=== PATIENT | male | born 1980 | race Caucasian/White ===

== ENCOUNTER 2020-07-20 18:37 | Emergency (ER) | payer SELFPAY ==
[2020-07-20 18:39] VITALS: BP 164/104; PULSE 95; RESP 26; TEMP 35.7; O2SAT 97; BMI 30.3
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
[2020-07-20 19:04] VITALS: RESP 18; O2SAT 97
[2020-07-20] MEDS: morphine 4 mg/mL SDV 1 mL IVP ×2 (19:04→20:54)
[2020-07-20] MEDS: ondansetron 2 mg/ML SDV 2 mL 4 MG IVP (19:05)
[2020-07-20 19:17] LABS: Basophils # 0.1 10^3/uL (0.0-0.1); Basophils % 0.4 %; Eosinophils # 0.5 10^3/uL (0.0-0.8); Hematocrit 47.3 % (42.0-52.0); Hemoglobin 15.6 g/dL (11.7-16.6); Lymphocytes # 2.8 10^3/uL (0.8-4.8); Lymphocytes % 25.2 %; Mean Corpuscular Hemoglobin 28.7 pg (28.0-34.0); Mean Corpuscular Volume 86.9 fL (80-94); Mean Platelet Volume 12.4 fL (7.4-10.4); Monocytes % 8.6 %; Neutrophils % 61.4 %; Nucleated Red Blood Cells % 0 %; Platelet Count 193 10^3/cmm (130-400); Red Blood Count 5.44 10^6/uL (4.1-5.3); Red Cell Distribution Width 13.3 % (12.1-15.1); White Blood Count 11.3 10^3/uL (4.0-10.0)
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
[2020-07-20 19:57] LABS: Alanine Aminotransferase 31 U/L (0-41); Albumin Level 4.8 g/dL (3.5-5.2); Alkaline Phosphatase 108 IU/L (40-130); Anion Gap 13.5 (5-19); Aspartate Amino Transferase 25 U/L (0-40); Blood Urea Nitrogen 17 mg/dL (6-20); Calcium 9.8 mg/dL (8.5-10.5); Carbon Dioxide 25 mmol/L (22-29); Chloride 101 mmol/L (98-107); Creatinine Clr Calc Pharmacy 102.7473; Globulin 2.6 g/dL (1.3-4.6); Glomerular Filtration Rate 66.7 mL/min (90-130); Glucose 86 mg/dL (65-115); Lipase 48 U/L (13-60); Osmolality Calculated 283 mOsm/kg (285-295); Potassium 3.5 mmol/L (3.5-5.1); Sodium 136 mmol/L (136-145); Total Bilirubin 0.3 mg/dL (0.15-1.2); Total Protein 7.4 g/dL (6.6-8.7)
[2020-07-20] MEDS: iohexol 300 mg/mL 100 mL Btl IV (20:05)
[2020-07-20 20:27] VITALS: BP 146/95; PULSE 70; RESP 18; O2SAT 95
[2020-07-20 20:46] LABS: Add Urine Microscopic? NO
[2020-07-20 20:54] VITALS: RESP 18; O2SAT 97
[2020-07-20 20:59] LABS: Bilirubin Urine Neg (Negative); Blood Urine Neg (Negative); Glucose Urine UA Norm (Normal); Ketones Urine Negative (Negative); Leukocyte Esterase Urine Negative (Negative); Nitrate Urine Negative (Negative); Protein Urine Neg (Negative); Specific Gravity, Urine 1.025 (1.005-1.030); Urine Appearance Clear (CLEAR); Urine Color Yellow (Yellow); Urobilinogen Urine Norm (Negative); pH Urine 5 (5-7)
[2020-07-20 22:10] VITALS: BP 148/96; PULSE 77; RESP 18; O2SAT 95
== END 2020-07-20 22:10 | disposition home or self-care (01) ==
PROVIDERS: Emergency Medicine; Emergency Provider Emergency Medicine; PCP Family Medicine
DX: S29.8XXA Other specified injuries of thorax, initial encounter (principal); E04.1 Nontoxic single thyroid nodule; V86.55XA Driver of 3- or 4- wheeled all-terrain vehicle (ATV) injured in nontraffic accident, initial encounter
CPT/HCPCS: 12345; 70450; 71045; 71260; 72125; 72128; 72131; 74177; 80053; 81003; 83690; 85025; 96374; 96375; 96376; 99282; 99283; J2270; J2405; Q9967

== ENCOUNTER 2020-11-06 07:31 | Emergency (ER) | payer SELFPAY ==
[2020-11-06 07:48] VITALS: BP 167/122; PULSE 94; RESP 16; TEMP 36.6; O2SAT 97; BMI 33.0
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
== END 2020-11-06 08:49 | disposition left against medical advice (07) ==
PROVIDERS: Emergency Provider Nurse Practitioner Family
DX: M79.641 Pain in right hand (principal); Z53.21 Procedure and treatment not carried out due to patient leaving prior to being seen by health care provider
CPT/HCPCS: 73130; 99282

== ENCOUNTER 2020-11-06 12:15 | Emergency (ER) | payer SELFPAY ==
[2020-11-06 12:23] VITALS: BP 157/96; PULSE 94; RESP 18; TEMP 36.6; O2SAT 98; BMI 33.0
--- NOTE | 2020-11-06 12:59 | ED_ITS ---
HPI - Extremity Problem General: Chief complaint: Extremity Injury, Upper Stated complaint: R HAND INJURY Time Seen by Provider: 11/06/20 12:35 Source: patient Mode of arrival: ambulatory Limitations: no limitations History of Present Illness: HPI Narrative: 40-year-old male patient returns to the emergency department, he was seen earlier but abruptly had to leave due to an emergency. He is here for evaluation of right upper extremity injury. He reports was at work 11/04/2020, works at a [employer], states pulled 2 boards with 1 board smashing his right hand wrist and forearm. He reports continued pain. He reports unable to move his wrist/hand due to pain. MD Complaint: extremity pain and extremity swelling Onset (ago): day(s) (2-3) Pain Consistency: intermittent Location: right and upper extremity Severity scale (1-10): 7 Quality: aching and dull Radiation: proximal and distal Relieving factors: immobilization and rest Exacerbating factors: range of motion Associated symptoms: Reports no associated symptoms; Deny chest pain, fever(s) or rash Review of Systems General: Reports: 10 or more systems reviewed and unremarkable except in HPI and below Const: Denies: fever(s), chills or diaphoresis Eyes: Denies: blurry vision or eye redness ENMT: Denies: throat pain, dental pain or disequilibrium Card: Denies: chest pain, palpitations or irregular heart rhythm Resp: Denies: dyspnea, productive cough, non-productive cough or wheezing GI: Denies: abdominal pain, nausea or vomiting : Denies: dysuria Musc: Reports: joint pain, joint stiffness and limited range of motion; Denies: neck pain or back pain Skin/Breast: Denies: rash or pruritus Neuro: Denies: headache(s), weakness in extremities or behavioral changes Psych: Denies: anxiety or depression Cheko/Lymph: Denies: easy bruising PFSH ED PFSH: Medical History No pertinent past medical history Physical Exam Const: COMMON NORMALS: no acute distress, patient oriented x3, healthy appearing and alert GENERAL APPEARANCE: cooperative, comfortable and well hydrated HENMT: COMMON NORMALS: normocephalic, Normal external nose present and moist oral mucous membranes HEAD & SCALP: normocephalic NOSE: Normal external nose present Eye: COMMON NORMALS: Equal, round and reactive pupils present and EOMs intact bilaterally GENERAL EYE: appearance normal, both eyes and all related structures PUPIL: Yes Equal, round and reactive pupils present Neck/C-Spine: COMMON NORMALS: full ROM and no lymphadenopathy GENERAL: Yes normal visual inspection and Yes trachea midline CERVICAL SPINE: Yes cervical ROM normal Lymph: LYMPHATIC: no lymphadenopathy noted Chest: COMMONS NORMALS: normal inspection of the chest Resp: COMMON NORMALS: normal respiratory effort and clear to auscultation bilaterally AUSCULTATION: clear to auscultation bilaterally Cardio: COMMON NORMALS: regular rate, regular rhythm, S1 normal heart sound present, S2 normal heart sound present and Peripheral pulses 2+ throughout RATE: regular rate RHYTHM: regular rhythm HEART SOUNDS: S1 normal heart sound present and S2 normal heart sound present PERIPHERAL PULSES: Peripheral pulses 2+ throughout GI: COMMON NORMALS: Soft to palpation and non-tender INSPECTION: Yes normal to inspection PALPATION: Yes Soft to palpation : COMMON NORMALS: Yes no CVA tenderness BLADDER/KIDNEY EXAM: Yes no CVA tenderness Back/Pelvis: COMMON NORMALS: no CVA tenderness and thoracic and lumbar spine normal to inspection Extremity: COMMON NORMALS: normal to inspection, capillary refill normal, no clubbing, cyanosis or edema, no calf tenderness and no pedal edema GENERAL: Yes normal exam except as noted RIGHT UPPER EXTREMITY: Yes elbow joint (Normal) Right elbow: Yes inspection, Yes palpation (Tenderness of the proximal forearm), Yes ROM (Limited supination/pronation secondary to pain) and Yes neurovascular exam (Distally intact) and Yes wrist (Right forearm with slight ecchymosis volar side) Right wrist: Yes inspection (Slight edema), Yes palpation (Tenderness on the ulnar side), Yes ROM (Limited secondary to pain) and Yes neurovascular exam (Distally intact) OTHER: Remains tender to the right forearm, ulnar side Neuro: COMMON NORMALS: patient oriented x3 and no focal motor deficits SENSORIUM/ORIENTATION: Yes alert Psych: COMMON NORMALS: mental status grossly normal, Normal thought process present and cooperative ACTIVITY/MOTOR BEHAVIOR: Yes appropriate eye contact THOUGHT PROCESS: Normal thought process present Skin: COMMON NORMALS: no rashes or lesions noted and turgor normal GENERAL SKIN EXAM: no rashes or lesions noted and turgor normal Course Vital Signs: Vital signs: Vital Signs Temperature 97.8 F 11/06/20 12:23 Pulse Rate 94 11/06/20 12:23 Respiratory Rate 18 11/06/20 12:23 Blood Pressure 157/96 11/06/20 12:23 Pulse Oximetry 98 11/06/20 12:23 MDM - Extremity (Nontraumatic) MDM Narrative: Medical decision making narrative: Right wrist and right forearm without acute abnormality/fracture according to x-ray results, wrist splint, Velcro was applied, he reports improvement of pain. Is requesting a work note for tomorrow and Saturday, he also needed note for work to wear Velcro wrist splint while working. Pain improved after administration of ibuprofen. Pronate and supinate with right wrist splint applied. Discharge Plan Discharge Patient Disposition: Home Clinical Impression: Crush injury arm Qualifiers: Encounter type: initial encounter Laterality: right Qualified Code(s): S47.1XXA - Crushing injury of right shoulder and upper arm, initial encounter Contusion of arm, right Qualifiers: Encounter type: initial encounter Qualified Code(s): S40.021A - Contusion of right upper arm, initial encounter Condition: Stable Prescriptions: New IBU 800 mg tablet 800 mg PO TID PRN (Reason: pain) Qty: 30 RF: 0 Discharge Orders: Discharge ED (Routine); Ordered 11/06/20 Ordered By: Prerna Pires Discharge Diet: Usual diet Discharge Activity: Limit activity as instructed Patient Instructions: Crush Injury, Contusion in Adults (ED), Opioid Safety Activity Restrictions/Additional Instructions: Wear arm sling to help keep arm elevated, you will need to keep the arm elevated to help reduce swelling and pain. Continue with cool compresses to help with swelling. May take [id number] Tylenol, may take 2 tablets of 500 mg 3 times daily as needed for pain. Take ibuprofen as prescribed, do not take [id number] ibuprofen, Aleve or naproxen/Advil as duplication of therapy can occur and cause kidney damage. Drink lots of fluids If arm is left hanging down, swelling will occur. Follow-up with your primary care provider in 2 to 3 days if pain is not improved, return the emergency department if you develop worsening pain/symptoms. Wear Velcro wrist splint at night and during the day for the first 48 hours to help with pain, may wear at work as needed Stand Alone Forms: Work/School Release Coding Level of Care Code ED Honeycomb Blanket Maker for Tiffg Fwd Exam Comprehensive
--- NOTE | 2020-11-06 12:59 | XRR_ITS ---
PROCEDURE INFORMATION: Exam: XR Right Forearm Exam date and time: 11/06/2020 1:01 PM Age: 40 years old Clinical indication: Injury or trauma; Other: Smashed; Work related; Swelling (edema); Arm, lower; Right; Additional info: RT arm pain, smash injury TECHNIQUE: Imaging protocol: XR Right forearm. Views: 2 views. COMPARISON: No relevant prior studies available. FINDINGS: Bones/joints: Normal. Soft tissues: Normal. XR/XR forearm RT 2V [id number] IMPRESSION: No acute findings.
[2020-11-06] MEDS: ibuprofen 600 mg Tablet PO (13:24)
== END 2020-11-06 14:44 | disposition home or self-care (01) ==
PROVIDERS: Emergency Provider Nurse Practitioner Family
DX: S47.1XXA Crushing injury of right shoulder and upper arm, initial encounter (principal); S40.021A Contusion of right upper arm, initial encounter; W23.0XXA Caught, crushed, jammed, or pinched between moving objects, initial encounter
CPT/HCPCS: 29125; 73090; 99283

== ENCOUNTER 2021-03-29 11:51 | Emergency (ER) | payer MEDICAID, SELFPAY ==
[2021-03-29 12:28] VITALS: BP 164/95; PULSE 87; RESP 20; TEMP 37.1; O2SAT 98; BMI 33.0
--- NOTE | 2021-03-29 12:39 | W.ED.BACK ---
HPI - Back Pain/Injury General: Chief Complaint: Back Pain/Injury Stated Complaint: Back Pain Time Seen by Provider: 03/29/21 12:33 Source: patient Mode of arrival: ambulatory Limitations: no limitations History of Present Illness: HPI Narrative: Patient is a nice 40-year-old male who presents to ED today with a complaint of right-sided back pain. Patient tells me he initially injured his back at work 3 months ago. He states he has had intermittent pains following that initial injury. He states he was seen at urgent care approximately a week ago and given IM dexamethasone and sent home on tenacity. Patient tells me the tizanidine did seem to help his symptoms (out of this now). 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 He states pain radiates down into his right buttock but does not extend distally into his lower extremity. He is not complaining of saddle anesthesia. He has not had any issues with urinary retention or bowel incontinence. MD elicited complaint: back pain Onset (ago): day(s) Timing: constant Severity: severe Similar Symptoms Previously: No Location: thoracic spine and right upper back Radiation: buttocks Exacerbating factors: movement, walking, coughing/sneezing and lifting Relieving factors: none Context: while lifting Associated symptoms: Reports no associated symptoms; Deny abdominal pain, chills, dysuria, fever(s), hematuria, nausea or urinary urgency Treatments prior to arrival: NSAIDS and other (muscle relaxers) Work related injury: No Review of Systems Const: Denies: fever(s), chills or body aches Card: Denies: chest pain Resp: Denies: dyspnea GI: Denies: abdominal pain or nausea : Denies: flank pain, difficulty urinating, dysuria, urinary frequency, urinary urgency, urinary hesitancy, urinary dribbling, change in urine stream, urinary incontinence or hematuria Musc: Reports: back pain; Denies: neck pain, extremity pain, extremity swelling, joint pain or joint swelling Skin/Breast: Denies: rash Neuro: Denies: numbness in extremities, weakness in extremities or sensory changes PFS ED PFSH: Medical History No pertinent past medical history Social History (Updated 03/22/21 @ 15:45 by Kezia Ya LPN) Smoking and tobacco status: current every day smoker Physical Exam Const: COMMON NORMALS: average body habitus, patient oriented x3, no limitations, healthy appearing, alert and well nourished GENERAL APPEARANCE: cooperative and in distress (appears very uncomfortable) HENMT: COMMON NORMALS: normocephalic and atraumatic HEAD & SCALP: normocephalic and atraumatic Resp: COMMON NORMALS: normal respiratory effort and clear to auscultation bilaterally AUSCULTATION: clear to auscultation bilaterally Cardio: COMMON NORMALS: regular rate and regular rhythm RATE: regular rate RHYTHM: regular rhythm GI: COMMON NORMALS: Normal to inspection, nondistended, normoactive bowel sounds present, Soft to palpation, non-tender, No hepatosplenomegaly present and no masses PALPATION: Yes Soft to palpation and Yes No hepatosplenomegaly present : COMMON NORMALS: Yes no CVA tenderness BLADDER/KIDNEY EXAM: Yes no CVA tenderness Back/Pelvis: COMMON NORMALS: no CVA tenderness THORACIC SPINE/UPPER BACK: No thoracic spinal tenderness and Yes paraspinal muscle tenderness LUMBAR SPINE/LOWER BACK: No lumbar spinal tenderness and Yes paraspinal muscle tenderness PELVIS: Yes buttocks normal SACROILIAC JOINTS: Yes SI joints normal BACK IMAGE (MALE): 1. TTP; palpation directly reproduces pts pain; muscle spasm Extremity: COMMON NORMALS: normal to inspection and full ROM Neuro: COMMON NORMALS: patient oriented x3, moves all extremities, no focal motor deficits and no sensory deficits noted SENSORIUM/ORIENTATION: Yes alert Skin: COMMON NORMALS: no rashes or lesions noted GENERAL SKIN EXAM: no rashes or lesions noted Course Vital Signs: Vital signs: Vital Signs Temperature 98.7 F 03/29/21 12:28 Pulse Rate 87 03/29/21 12:28 Respiratory Rate 20 H 03/29/21 12:28 Blood Pressure 164/95 03/29/21 12:28 Pulse Oximetry 98 03/29/21 12:28 MDM - Back Pain/Injury MDM Narrative: Medical decision making narrative: Patient feeling much improved. He went from reporting pain at a greater than 10 to now at a 0. Will write for steroids/muscle relaxers/pain meds for home. He states he has a PCP appointment on 04/06 for follow up. Discharge Plan Discharge Patient Disposition: Home Clinical Impression: Spasm of thoracic back muscle Strain of mid-back Qualifiers: Encounter type: initial encounter Qualified Code(s): S29.012A - Strain of muscle and tendon of back wall of thorax, initial encounter Condition: Stable Prescriptions: New tramadol 50 mg tablet 50 mg PO Q6H PRN (Reason: pain) Qty: 14 RF: 0 Medrol (Fabiano) 4 mg tablets,dose pack See Rx Instructions .ROUTE .COMPLEX Qty: 21 RF: 0 Continued tizanidine 2 mg capsule 2 mg PO TID PRN (Reason: muscle spasticity) Qty: 15 RF: 0 No Action naproxen 500 mg tablet 500 mg PO BID PRN (Reason: pain) Qty: 30 RF: 0 Discharge Orders: Discharge ED (Routine); Ordered 03/29/21 Ordered By: Meghana Parada Patient Instructions: Low Back Strain (ED), Muscle Spasm (ED) Coding Level of Care Code ED Manager Of Investigations for Tiffg Fwd Exam Comprehensive
[2021-03-29] MEDS: orphenadrine 30 mg/mL Inj 2 mL 60 MG IV (13:33)
[2021-03-29] MEDS: dexamethasone 10 mg/mL INJ 8 MG IV (13:33)
[2021-03-29] MEDS: ketorolac 30 mg/mL INJ IVP (13:34)
[2021-03-29] MEDS: morphine 4 mg/mL SDV 1 mL IVP (13:34)
[2021-03-29 14:40] VITALS: BP 131/72; PULSE 74; O2SAT 96
== END 2021-03-29 14:40 | disposition home or self-care (01) ==
PROVIDERS: Emergency Provider Physician Assistant
DX: S29.012A Strain of muscle and tendon of back wall of thorax, initial encounter (principal); M62.830 Muscle spasm of back; F17.200 Nicotine dependence, unspecified, uncomplicated; X50.0XXA Overexertion from strenuous movement or load, initial encounter; Y92.009 Unspecified place in unspecified non-institutional (private) residence as the place of occurrence of the external cause
CPT/HCPCS: 96374; 96375; 99283; J1100; J1885; J2270; J2360

== ENCOUNTER → 2021-04-06 14:09 | Outpatient (BNVA) | payer MEDICAID, SELFPAY | PROVIDERS: PCP Family Medicine; Visit Provider Family Medicine | DX: F17.213 Nicotine dependence, cigarettes, with withdrawal (principal); I82.409 Acute embolism and thrombosis of unspecified deep veins of unspecified lower extremity; M54.16 Radiculopathy, lumbar region; Z13.6 Encounter for screening for cardiovascular disorders; I82.5Z1 Chronic embolism and thrombosis of unspecified deep veins of right distal lower extremity | CPT/HCPCS: 80053; 80061; 83036; 85025; 85651 ==

== ENCOUNTER 2021-04-10 15:09 | Outpatient (CLI) | payer MEDICAID, SELFPAY ==
--- NOTE | 2021-04-10 15:45 | XR_ITS ---
WS: [id number] Lumbar spine, 3 views, 04/10/2021 Clinical Data: Chronic Lumbar Back Pain Comparison: None. Findings: No compression fractures or subluxation is seen. No disc space narrowing is seen. The transverse proc esses and SI joints are normal. There is minimal osteoarthritic spurring of the L5 vertebral body. 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
== END 2021-04-10 15:10 | disposition home or self-care (01) ==
LOC: RADWPI 15:14
PROVIDERS: PCP Family Medicine; Visit Provider Family Medicine
DX: M54.5 Low back pain (principal); M54.16 Radiculopathy, lumbar region; M47.816 Spondylosis without myelopathy or radiculopathy, lumbar region
CPT/HCPCS: 72100

== ENCOUNTER 2021-04-24 13:22 | Outpatient (RCR) | payer MEDICAID, SELFPAY | END 2021-05-09 23:59 | disposition home or self-care (01) | LOC: SPT 13:22 | PROVIDERS: PCP Family Medicine; Referring Provider Family Medicine; Visit Provider Family Medicine | DX: M54.16 Radiculopathy, lumbar region (principal) | CPT/HCPCS: 97110; 97162 ==

== ENCOUNTER 2021-04-27 19:54 | Emergency (ER) | payer MEDICAID, SELFPAY ==
--- NOTE | 2021-04-27 19:56 | XRR_ITS ---
PROCEDURE INFORMATION: Exam: XR Right Hand Exam date and time: 04/27/2021 7:56 PM Age: 40 years old Clinical indication: Pain; Hand; Right; Additional info: Pain on medial side of hand. No known injury TECHNIQUE: Imaging protocol: XR Right hand. Views: 3 or more views. COMPARISON: CR ([facility], ) 11/06/2020 8:01 AM FINDINGS: Bones/joints: Normal. Soft tissues: Normal. XR/XR hand RT min 3V* [id number] IMPRESSION: No acute findings.
[2021-04-27 20:02] VITALS: BP 145/88; PULSE 96; RESP 18; TEMP 36.4; O2SAT 96; BMI 32.3
[2021-04-27 20:08] VITALS: PULSE 96
--- NOTE | 2021-04-27 20:16 | W.ED.EXTPRO ---
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 Patient denies hitting any pain. Patient reports that he has injured his hand in the past when he was fighting. Patient appears well. Patient appears no acute distress. Patient did try some ice to the extremity but reported increased pain and tenderness with the use of ice. Review of Systems General: Reports: 10 or more systems reviewed and unremarkable except in HPI and below Musc: Reports: other (right hand injury) COUNT INCLUDES THE [facility] ED PFS: Medical History (Updated 04/27/21 @ 20:46 by FÁTIMA Garcia) Deep vein thrombosis (DVT) of lower extremity No pertinent past medical history Family History Other Cancer Dementia Diabetes Hyperlipidemia Hypertension Lung disease Psychiatric illness Stroke Social History Smoking and tobacco status: current every day smoker Second hand smoke exposure: Yes Alcohol intake: never Desire information about alcohol rehabilitation?: No Desire information about substance/drug rehabilitation?: No Physical Exam Const: COMMON NORMALS: no acute distress and patient oriented x3 GENERAL APPEARANCE: cooperative HENMT: COMMON NORMALS: normocephalic and Normal external nose present HEAD & SCALP: normal to inspection and normocephalic NOSE: Normal external nose present Eye: GENERAL EYE: appearance normal, both eyes and all related structures Neck/C-Spine: COMMON NORMALS: full ROM Lymph: LYMPHATIC: no lymphadenopathy noted Chest: COMMONS NORMALS: normal inspection of the chest Resp: COMMON NORMALS: normal respiratory effort EFFORT & INSPECTION: Yes able to speak in complete sentences Cardio: COMMON NORMALS: regular rate and regular rhythm RATE: regular rate RHYTHM: regular rhythm GI: COMMON NORMALS: non-tender Extremity: NARRATIVE EXTREMITY EXAM: Right dorsal ulnar hand has some swelling and tenderness to palpation. Patient has good range of motion of the digits. Cap refill is intact. Neuro: COMMON NORMALS: patient oriented x3 and moves all extremities Psych: COMMON NORMALS: mental status grossly normal and cooperative Skin: COMMON NORMALS: no rashes or lesions noted GENERAL SKIN EXAM: no rashes or lesions noted Course Vital Signs: Vital signs: Vital Signs Temperature 97.6 F 04/27/21 20:02 Pulse Rate 96 04/27/21 20:08 Respiratory Rate 18 04/27/21 20:02 Blood Pressure 145/88 04/27/21 20:02 Pulse Oximetry 96 04/27/21 20:02 MDM - Extremity (Nontraumatic) MDM Narrative: Medical decision making narrative: Patient comes in for injury to the right dorsal hand. On exam there is no sign of redness, there is some tenderness and swelling to the ulnar aspect of the right dorsal hand. Patient has good range of motion of the hand. Cap refill is normal. Patient is guarded with movement of the fourth and fifth digit due to pain. Differential diagnosis includes fracture, sprain, arthritis. X-ray noted no obvious sign of fracture. Patient was placed in a elastic bandage for swelling and discomfort. Patient was recommended to use acetaminophen and ibuprofen for pain. Recommended follow-up with primary care as needed for worsening or persistent symptoms. Discharge Plan Discharge Patient Disposition: Home Clinical Impression: Contusion of hand, right Qualifiers: Encounter type: initial encounter Qualified Code(s): S60.221A - Contusion of right hand, initial encounter Condition: Stable Prescriptions: No Action naproxen 500 mg tablet 500 mg PO BID PRN (Reason: pain) Qty: 30 RF: 0 cyclobenzaprine 10 mg tablet 10 mg PO TID PRN (Reason: muscle spasm) Qty: 30 RF: 1 prednisone 20 mg tablet 20 mg PO DAILY Qty: 18 RF: 0 tramadol 50 mg tablet 50 mg PO Q6H PRN (Reason: pain) Qty: 14 RF: 0 tizanidine 2 mg capsule 2 mg PO TID PRN (Reason: muscle spasticity) Qty: 15 RF: 0 Discharge Orders: Discharge ED (Routine); Ordered 04/27/21 Ordered By: Juan Figueroa Referrals: Star Garduno DO [Primary Care Provider] - Discharge Diet: Usual diet Discharge Activity: Increase activity as tolerated Patient Instructions: Musculoskeletal Pain (ED), Opioid Safety Activity Restrictions/Additional Instructions: Wear an elastic bandage to the hand to help with swelling. Use acetaminophen and ibuprofen for pain. Drink plenty of water with medication. Activity as tolerated. Follow-up with primary care for further instruction. Return to the ER for new concerns. Coding Level of Care Code ED Booking Clerk for Chg Fwd Exam Comprehensive
[2021-04-27 21:04] VITALS: BP 148/76; PULSE 98; RESP 18; O2SAT 100
== END 2021-04-27 21:05 | disposition home or self-care (01) ==
PROVIDERS: Emergency Provider Nurse Practitioner Family; PCP Family Medicine
DX: S60.221A Contusion of right hand, initial encounter (principal); F17.210 Nicotine dependence, cigarettes, uncomplicated; X58.XXXA Exposure to other specified factors, initial encounter
CPT/HCPCS: 73130; 99282

== ENCOUNTER → 2021-05-02 10:59 | Outpatient (BNVA) | payer MEDICAID, SELFPAY | PROVIDERS: PCP Family Medicine; Visit Provider Family Medicine | DX: M54.16 Radiculopathy, lumbar region (principal) | CPT/HCPCS: 85025; 85651 ==

== ENCOUNTER 2021-05-10 06:00 | Outpatient (RCR) | payer MEDICAID, SELFPAY | END 2021-06-08 23:59 | disposition home or self-care (01) | LOC: SPT 06:00 | PROVIDERS: PCP Family Medicine; Referring Provider Family Medicine; Visit Provider Family Medicine | DX: M54.16 Radiculopathy, lumbar region (principal) | CPT/HCPCS: 97110 ==

== ENCOUNTER 2021-05-15 12:48 | Emergency (ER) | payer MEDICAID, SELFPAY ==
[2021-05-15 13:04] VITALS: BP 177/120; PULSE 98; RESP 20; TEMP 36.9; O2SAT 95
--- NOTE | 2021-05-15 13:15 | XRR_ITS ---
PROCEDURE INFORMATION: Exam: XR Chest Exam date and time: 05/15/2021 1:15 PM Age: 40 years old Clinical indication: Angina and dyspnea; Patient HX: SOB, chest pain today; Additional info: Cp TECHNIQUE: Imaging protocol: XR of the chest. Views: 1 view. COMPARISON: CT chest abd pel w con* 07/20/2020 7:51 PM FINDINGS: Lungs: Unremarkable. No consolidation. Pleural spaces: Unremarkable. No pleural effusion. No pneumothorax. Heart/Mediastinum: Unremarkable. No cardiomegaly. Bones/joints: Unremarkable. XR/XR chest 1V portable [id number] IMPRESSION: No acute findings.
--- NOTE | 2021-05-15 13:19 | ECG_ITS ---
[facility] Test Date: 2021-05-15 Pat Name: Kenneth Blackwood Department: Room: Gender: Male [employer] Worker: : 1980 Requested By: Bartolome Chau Order Number: [id number] Reading MD: ELENA LOMAX Measurements Intervals Erick Rate: 92 P: 53 NV: 158 QRS: 37 QRSD: 86 T: 55 QT: 343 QTc: 425 Interpretive Statements SINUS RHYTHM No previous ECG available for comparison Electronically Signed On 05-15-2021 18:28:23 CDT by ELENA LOMAX [id number]
--- NOTE | 2021-05-15 13:20 | W.ED.CHESTPA ---
HPI - Chest Pain General: Chief Complaint: Chest Pain Stated Complaint: CHEST PAINS Time Seen by Provider: 05/15/21 13:04 History of Present Illness: HPI narrative: 40-year-old male presents chest pain shortness of breath. States that he has had a runny nose since yesterday and last night started having pressure-like tightness feeling chest pain does not radiate. Specifically it is no radiation to back. Does report cough and shortness of breath along with this. Patient states he has history of DVT but is not on blood thinners at this time. Denies history of PE. Reports subjective fevers at home but does not know his exact temperature. Denies any history of CAD but does report hypertension hyperlipidemia. Patient is also a smoker. Denies other illicit drug use. Denies nausea or vomiting. Review of Systems Narrative: - CONSTITUTIONAL: Denies weight loss, fever and chills. - HEENT: Denies changes in vision and hearing. - RESPIRATORY: See above - CV: See above - GI: Denies abdominal pain, nausea, vomiting and diarrhea. - : Denies dysuria and urinary frequency. - MSK: Denies myalgia and joint pain. - SKIN: Denies rash and pruritus. - NEUROLOGICAL: Denies headache, weakness, numbness and syncope. - PSYCHIATRIC: Denies suicidal ideation PFSH ED PFSH: Medical History Deep vein thrombosis (DVT) of lower extremity No pertinent past medical history Family History Other Cancer Dementia Diabetes Hyperlipidemia Hypertension Lung disease Psychiatric illness Stroke Social History Smoking and tobacco status: current every day smoker Second hand smoke exposure: Yes Alcohol intake: never Desire information about alcohol rehabilitation?: No Desire information about substance/drug rehabilitation?: No Physical Exam Narrative: EXAM NARRATIVE: - GENERAL: Alert and oriented x 3. No acute distress. Well-nourished. - EYES: EOMI. Anicteric. - HENT: Moist mucous membranes. No scleral icterus. No cervical lymphadenopathy. - LUNGS: Bilateral wheezing. Equal lung sounds bilaterally. No respiratory distress. - CARDIOVASCULAR: Regular rate and rhythm. No murmur. No JVD. - ABDOMEN: Soft, non-tender and non-distended. Negative CVA tenderness bilaterally, no rebound or guarding, negative Nava sign. No palpable masses. - EXTREMITIES: No edema. Non-tender. - SKIN: No rashes or lesions. Warm. - NEUROLOGIC: No meningismus or focal neurological deficits. CN II-XII grossly intact. - PSYCHIATRIC: Cooperative. Appropriate mood and affect. Course Vital Signs: Vital signs: Vital Signs Temperature 98.4 F 05/15/21 13:04 Pulse Rate 85 05/15/21 13:49 Respiratory Rate 20 H 05/15/21 13:43 Blood Pressure 145/88 05/15/21 13:49 Pulse Oximetry 95 05/15/21 13:49 MDM - Chest Pain MDM Narrative: Medical decision making narrative: 40-year-old male presents with chest pain shortness of breath. Found to have wheezing on exam. Symptoms consistent with COPD exacerbation. Improved with albuterol and steroids. On repeat evaluation wheezing is gone. Ambulated without desaturation. He is otherwise hemodynamically stable afebrile nontoxic-appearing. States symptoms are gone after treatment. No signs of dissection. D-dimer is negative. Not believe CT is required at this time. X-ray does not reveal any pneumothorax or consolidation. EKG and troponin do not reveal any acute ischemic change. Symptoms have been ongoing for more than 6 hours by time presentation at this time do not believe second troponin is required. Heart score is 3. Remainder of lab work otherwise unremarkable except for mild white count elevation at 12 there is no focal infectious etiology. Covid swab is negative. At this time I believe patient would be safe for discharge and outpatient follow-up. Return precautions provided. Plan was reviewed with the patient who expressed understanding. Questions answered. Patient will follow up with PCP. Patient discharged in stable condition. Lab Data: Labs: Lab Results 05/15/21 05/15/21 05/15/21 Range/Units 13:28 13:28 13:28 WBC 12.4 H (4.0-10.0) 10^3/ uL RBC 5.08 (4.1-5.3) 10^6/u L Hgb 15.2 (11.7-16.6) g/dL Hct 45.6 (42.0-52.0) % MCV 89.8 (80-94) fl MCH 29.9 (28.0-34.0) pg MCHC 33.3 (30.0-36.0) g/dL RDW 13.5 (12.1-15.1) % Plt Count 189 (130-400) 10^3/c mm MPV 11.8 H (7.4-10.4) fL Neut % (Auto) 68.6 % Lymph % (Auto) 18.4 % [place] % (Auto) 6.7 % Eos % (Auto) 3.9 % Baso % (Auto) 0.4 % Neut # (Auto) 8.54 H (1.8-7.7) 10^3/u L Lymph # (Auto) 2.3 (0.8-4.8) 10^3/u L [place] # (Auto) 0.8 (0.2-0.9) 10^3/u L Eos # (Auto) 0.5 (0.0-0.8) 10^3/u L Baso # (Auto) 0.1 (0.0-0.1) 10^3/u L Nucleated RBC % (a uto) 0 % Nucleated RBCs # 0.0 /100WBC PT 12.40 (12.1-14.9) SECO NDS INR 0.90 (0.8-1.2) APTT 20.4 L (23.9-36.7) SECO NDS D-Dimer <= 0.27 (0-0.59) ug/mIFE U Sodium 139 (136-145) mmol/L Potassium 3.7 (3.5-5.1) mmol/L Chloride 102 (98-107) mmol/L Carbon Dioxide 26 (22-29) mmol/L Anion Gap 14.7 (5-19) BUN 20 (6-20) mg/dL Creatinine 1.1 (0.7-1.2) mg/dL GFR Calculation 73.4 L (90-130) mL/min Glucose 79 (65-115) mg/dL Calculated Osmolal ity 290 (285-295) mOsm/k g Calcium 8.7 (8.5-10.5) mg/dL Total Bilirubin 0.2 (0.15-1.2) mg/dL AST 21 (0-40) U/L ALT 33 (0-41) U/L Alkaline Phosphata se 102 (40-130) IU/L Troponin T Baselin e (0-15) ng/L NT-Pro-B Natriuret Pep 44 (0-125) pg/mL Total Protein 6.5 L (6.6-8.7) g/dL Albumin 4.4 (3.5-5.2) g/dL Globulin 2.1 (1.3-4.6) g/dL Lipase 47 (13-60) U/L SARS-CoV-2 Ag (Rap id) (Negative) 05/15/21 05/15/21 Range/Units 13:28 14:06 WBC (4.0-10.0) 10^3/ uL RBC (4.1-5.3) 10^6/u L Hgb (11.7-16.6) g/dL Hct (42.0-52.0) % MCV (80-94) fl MCH (28.0-34.0) pg MCHC (30.0-36.0) g/dL RDW (12.1-15.1) % Plt Count (130-400) 10^3/c mm MPV (7.4-10.4) fL Neut % (Auto) % Lymph % (Auto) % [place] % (Auto) % Eos % (Auto) % Baso % (Auto) % Neut # (Auto) (1.8-7.7) 10^3/u L Lymph # (Auto) (0.8-4.8) 10^3/u L [place] # (Auto) (0.2-0.9) 10^3/u L Eos # (Auto) (0.0-0.8) 10^3/u L Baso # (Auto) (0.0-0.1) 10^3/u L Nucleated RBC % (a uto) % Nucleated RBCs # /100WBC PT (12.1-14.9) SECO NDS INR (0.8-1.2) APTT (23.9-36.7) SECO NDS D-Dimer (0-0.59) ug/mIFE U Sodium (136-145) mmol/L Potassium (3.5-5.1) mmol/L Chloride (98-107) mmol/L Carbon Dioxide (22-29) mmol/L Anion Gap (5-19) BUN (6-20) mg/dL Creatinine (0.7-1.2) mg/dL GFR Calculation (90-130) mL/min Glucose (65-115) mg/dL Calculated Osmolal ity (285-295) mOsm/k g Calcium (8.5-10.5) mg/dL Total Bilirubin (0.15-1.2) mg/dL AST (0-40) U/L ALT (0-41) U/L Alkaline Phosphata se (40-130) IU/L Troponin T Baselin e 8 (0-15) ng/L NT-Pro-B Natriuret Pep (0-125) pg/mL Total Protein (6.6-8.7) g/dL Albumin (3.5-5.2) g/dL Globulin (1.3-4.6) g/dL Lipase (13-60) U/L SARS-CoV-2 Ag (Rap id) Negative (Negative) EKG Data^: EKG 1: Other EKG comments: Time is 1307, sinus rhythm rate of 92, T wave flattening in aVL, otherwise no sign of acute ischemia or other acute abnormality. Discharge Plan Discharge Patient Disposition: Home Clinical Impression: COPD exacerbation, Chest pain Condition: Stable Prescriptions: New prednisone 50 mg tablet 50 mg PO DAILY 5 Days Qty: 5 RF: 0 albuterol sulfate 90 mcg/actuation HFA aerosol inhaler 1 inh inhalation Q6H PRN (Reason: shortness of breath or wheezing) Qty: 8.5 RF: 0 No Action ketorolac 10 mg tablet 10 mg PO TID PRN (Reason: pain) 14 Days Qty: 30 RF: 0 methylprednisolone [Medrol (Fabiano)] 4 mg tablets,dose pack See Rx Instructions PO PER PKG DIR 6 Days Qty: 21 RF: 0 triamcinolone acetonide 0.1 % cream 1 applic topical BID Qty: 80 RF: 0 ProAir HFA 90 mcg/actuation Hfa Aerosol Inhaler 2 puff INHALATION Q4H PRN (Reason: Shortness Of Breath) RF: 0 Sinus Congestion-Pain Severe 10-650-400 mg Tablet 1 tab PO BEDTIME RF: 0 baclofen 10 mg tablet 10 mg PO TID PRN (Reason: Muscle Spasticity) RF: 0 Discharge Orders: Discharge ED (Routine); Ordered 05/15/21 Ordered By: Bartolome Chau Referrals: Star Garduno DO [Primary Care Provider] - 1-3 days Patient Instructions: Chest Pain (ED), Chronic Obstructive Pulmonary Disease (ED), Opioid Safety Coding Level of Care Code 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
--- NOTE | 2021-05-15 13:23 | PC.PHAR ---
pt states he takes care of his own medications-pt states he has been using his ex wifes inhaler-pt states he is on day 4 of his medrol dose sam-pt states he is taking some kind of otc sinus pill he takes at hs pt states the one entered could be the one he is taking
[2021-05-15 13:24] VITALS: BP 145/88; PULSE 79; O2SAT 97
[2021-05-15] MEDS: ipratropium-albuterol 3 mL Neb INHALATION (13:40)
[2021-05-15 13:43] VITALS: PULSE 79; RESP 20; O2SAT 98
[2021-05-15 13:45] VITALS: PULSE 81
[2021-05-15 13:49] VITALS: BP 145/88; PULSE 85; O2SAT 95
[2021-05-15 13:55] LABS: Basophils # 0.1 10^3/uL (0.0-0.1); Basophils % 0.4 %; Eosinophils # 0.5 10^3/uL (0.0-0.8); Eosinophils % 3.9 %; Hematocrit 45.6 % (42.0-52.0); Hemoglobin 15.2 g/dL (11.7-16.6); Lymphocytes # 2.3 10^3/uL (0.8-4.8); Lymphocytes % 18.4 %; Mean Corpuscular HGB Conc 33.3 g/dL (30.0-36.0); Mean Corpuscular Hemoglobin 29.9 pg (28.0-34.0); Mean Corpuscular Volume 89.8 fl (80-94); Mean Platelet Volume 11.8 fL (7.4-10.4); Monocytes # 0.8 10^3/uL (0.2-0.9); Monocytes % 6.7 %; Neutrophils # 8.54 10^3/uL (1.8-7.7); Neutrophils % 68.6 %; Nucleated Red Blood Cells % 0 %; Platelet Count 189 10^3/cmm (130-400); Red Blood Count 5.08 10^6/uL (4.1-5.3); Red Cell Distribution Width 13.5 % (12.1-15.1); White Blood Count 12.4 10^3/uL (4.0-10.0)
[2021-05-15 14:14] LABS: Partial Thromboplastin Time 20.4 SECONDS (23.9-36.7)
[2021-05-15 14:17] LABS: D Dimer <= 0.27 ug/mIFEU (0-0.59)
[2021-05-15 14:19] LABS: Troponin(5th) Baseline 8 ng/L (0-15)
[2021-05-15 14:25] LABS: Alanine Aminotransferase 33 U/L (0-41); Albumin Level 4.4 g/dL (3.5-5.2); Alkaline Phosphatase 102 IU/L (40-130); Anion Gap 14.7 (5-19); Aspartate Amino Transferase 21 U/L (0-40); Blood Urea Nitrogen 20 mg/dL (6-20); Calcium 8.7 mg/dL (8.5-10.5); Carbon Dioxide 26 mmol/L (22-29); Chloride 102 mmol/L (98-107); Globulin 2.1 g/dL (1.3-4.6); Glomerular Filtration Rate 73.4 mL/min (90-130); Glucose 79 mg/dL (65-115); Lipase 47 U/L (13-60); NT Pro B Type Natriuretic Pept 44 pg/mL (0-125); Osmolality Calculated 290 mOsm/kg (285-295); Potassium 3.7 mmol/L (3.5-5.1); Sodium 139 mmol/L (136-145); Total Bilirubin 0.2 mg/dL (0.15-1.2); Total Protein 6.5 g/dL (6.6-8.7)
[2021-05-15] MEDS: aspirin 81 mg Chew Tablet 324 MG PO (14:34)
[2021-05-15] MEDS: dexamethasone 10 mg/mL INJ IVP (14:35)
[2021-05-15 15:31] LABS: SARS Covid-2 Antigen Negative (Negative)
[2021-05-15 15:53] VITALS: PULSE 83; RESP 17; O2SAT 94
== END 2021-05-15 15:53 | disposition home or self-care (01) ==
PROVIDERS: Emergency Provider Emergency Medicine; PCP Family Medicine
DX: J44.1 Chronic obstructive pulmonary disease with (acute) exacerbation (principal); R07.9 Chest pain, unspecified; F17.210 Nicotine dependence, cigarettes, uncomplicated; Z20.822 Contact with and (suspected) exposure to COVID-19
CPT/HCPCS: 71045; 80053; 83690; 83880; 84484; 85025; 85378; 85610; 85730; 87426; 93005; 94640; 96374; 99284; J1100

== ENCOUNTER 2021-10-16 11:01 | Emergency (ER) | payer MEDICAID, SELFPAY ==
[2021-10-16 11:42] VITALS: BP 142/103; PULSE 82; RESP 16; TEMP 37; O2SAT 98; BMI 29.7
--- NOTE | 2021-10-16 11:47 | XR_ITS ---
WS: [id number] XR ribs RT mn 3V w CXR1V [id number] REASON FOR EXAM: rib pain after injury by pig FINDINGS: No fracture or focal bone lesion. Underlying right lung and pleura are unremarkable. XR/XR ribs RT mn 3V w CXR1V [id number] IMPRESSION: No acute abnormality.
--- NOTE | 2021-10-16 11:47 | XR_ITS ---
WS: [id number] RIGHT SHOULDER: 3 VIEW(S) TECHNIQUE: Internal and external rotation with Y view. HISTORY: shoulder injury after attacked by pig COMPARISON: None available. No fracture or dislocation or soft tissue abnormality. Glenohumeral and AC joints are unremarkable. Benign granuloma RIGHT upper lobe. XR/XR shoulder RT min 2V* [id number] IMPRESSION: Normal RIGHT shoulder.
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
--- NOTE | 2021-10-16 12:13 | PC.NURSE ---
ATETMPTED TO ADM HYDROCODONE PT STATES, THEY DON'T DO NOTHING FOR ME . INFORMED HIM I WOULD TELL PROVIDER
[2021-10-16 12:44] VITALS: RESP 16
[2021-10-16] MEDS: morphine 4 mg/mL SDV 1 mL IM (12:44)
--- NOTE | 2021-10-16 12:44 | PC.NURSE ---
PT INSTRUCTED THAT HE SHOULD NOT DRINK OR DRIVE 8 HOURS AFTER TAKING NARCOTIC PAIN MEDICATION. HE VERBALIZED UNDERSTANDING STATING, I GOT A JUNIOR ESTIMATOR .
[2021-10-16 13:04] VITALS: BP 161/93; PULSE 83; RESP 18; TEMP 36.7; O2SAT 98
== END 2021-10-16 13:06 | disposition home or self-care (01) ==
PROVIDERS: Emergency Provider Physician Assistant; PCP Family Medicine
DX: S20.211A Contusion of right front wall of thorax, initial encounter (principal); F17.210 Nicotine dependence, cigarettes, uncomplicated; W19.XXXA Unspecified fall, initial encounter
CPT/HCPCS: 71101; 73030; 96372; 99283; J2270

== ENCOUNTER 2022-01-18 23:51 | Emergency (ER) | payer MEDICAID, SELFPAY ==
[2022-01-18 23:55] VITALS: BP 167/99; PULSE 73; RESP 22; TEMP 36.7; O2SAT 98; BMI 26.4
--- NOTE | 2022-01-19 00:30 | ED_ITS ---
HPI - Allergic Reaction General: Chief complaint: Allergic Reaction Stated complaint: allergic reaction Time Seen by Provider: 01/19/22 00:21 History of Present Illness: HPI narrative: 41-year-old male patient comes in today with complaints of hives. Patient reports increased hives to his groin and on his upper and lower extremities. Patient reports that he ate some deer meat and since eaten the deer meat patient started having the rash. Patient reports increased itching. Patient appears nontoxic. Patient appears in no pain. Associated symptoms: Deny abdominal pain Review of Systems General: Reports: 10 or more systems reviewed and unremarkable except in HPI and below Const: Denies: fever(s) Card: Denies: chest pain Resp: Denies: dyspnea GI: Denies: abdominal pain Musc: Denies: extremity pain Skin/Breast: Reports: rash PFSH ED PFSH: Medical History Deep vein thrombosis (DVT) of lower extremity No pertinent past medical history Family History Other Cancer Dementia Diabetes Hyperlipidemia Hypertension Lung disease Psychiatric illness Stroke Social History Smoking and tobacco status: current every day smoker Second hand smoke exposure: Yes Alcohol intake: never Desire information about alcohol rehabilitation?: No Desire information about substance/drug rehabilitation?: No Physical Exam Const: COMMON NORMALS: no acute distress HENMT: COMMON NORMALS: normocephalic and Normal external nose present HEAD & SCALP: normocephalic NOSE: Normal external nose present MOUTH: Normal oral and palatal mucosa present THROAT: posterior oropharynx normal Neck/C-Spine: COMMON NORMALS: full ROM Resp: COMMON NORMALS: normal respiratory effort and clear to auscultation bilaterally AUSCULTATION: clear to auscultation bilaterally Cardio: COMMON NORMALS: regular rate and regular rhythm RATE: regular rate RHYTHM: regular rhythm Extremity: COMMON NORMALS: normal to inspection Skin: RASHES: rashes noted (Mild urticaria is noted.) Course Vital Signs: Vital signs: Vital Signs Temperature 98.1 F 01/18/22 23:55 Pulse Rate 73 01/18/22 23:55 Respiratory Rate 22 H 01/18/22 23:55 Blood Pressure 167/99 01/18/22 23:55 Pulse Oximetry 98 05/12/22 23:55 MDM - Allergic Reaction Medical Decision Making 41-year-old male patient comes in today for concerns of hives and itching. On exam patient has mild hives. Patient reports worse symptoms in the groin area. Respirations are even lungs are clear to auscultation. Posterior pharynx is normal. Differential diagnosis includes allergic reaction, urticaria, anxiety. Patient was given a dose of Benadryl and a dose of dexamethasone. Patient will be continued on hydroxyzine and prednisone. Encourage fluids rest and follow-up with primary care. Patient reported understanding. Discharge Plan Discharge Patient Disposition: Home Clinical Impression: Allergic reaction Qualifiers: Encounter type: initial encounter Qualified Code(s): T78.40XA - Allergy, unspecified, initial encounter Condition: Stable Prescriptions: New prednisone 20 mg tablet 60 mg PO DAILY 5 Days Qty: 15 0RF hydroxyzine HCl 25 mg tablet 25 mg PO Q6H PRN (Reason: itching) Qty: 20 0RF No Action triamcinolone acetonide 0.1 % cream 1 applic topical BID Qty: 80 0RF naproxen 500 mg tablet 500 mg PO BID 10 Days Qty: 20 0RF ProAir HFA 90 mcg/actuation Hfa Aerosol Inhaler 2 puff INHALATION Q4H PRN (Reason: Shortness Of Breath) 0RF albuterol sulfate 90 mcg/actuation HFA aerosol inhaler 1 inh inhalation Q6H PRN (Reason: shortness of breath or wheezing) Qty: 8.5 0RF ibuprofen 800 mg tablet 800 mg PO Q8H PRN (Reason: pain) Qty: 20 0RF cyclobenzaprine 7.5 mg tablet 7.5 mg PO BID PRN (Reason: muscle spasm) Qty: 20 0RF Discharge Orders: Discharge ED (Routine); Ordered 01/19/22 Ordered By: Juan Figueroa Referrals: Star Garduno DO [Primary Care Provider] - Discharge Diet: Usual diet Discharge Activity: Increase activity as tolerated Patient Instructions: Urticaria (ED) Activity Restrictions/Additional Instructions: Take prednisone and hydroxyzine as ordered. Drink plenty of water with medication. Avoid contact with deer meat in the future. The rash may recur over the next 2 to 3 days. Try to avoid spicy foods, acidic foods, or extreme temperatures as this may aggravate the rash. Follow-up with primary care in 3 days for recheck. Return to the ER for new concerns. Coding Level of Care Code ED Investigations Director for Elvia Lewis
[2022-01-19] MEDS: diphenhydrAMINE 50 mg/mL SDV 1mL IM (01:35)
[2022-01-19] MEDS: dexamethasone 10 mg/mL INJ IM (01:35)
[2022-01-19 01:57] VITALS: BP 155/98; PULSE 87; RESP 20; TEMP 36.6; O2SAT 98
== END 2022-01-19 01:59 | disposition home or self-care (01) ==
PROVIDERS: Emergency Provider Nurse Practitioner Family; PCP Family Medicine
DX: T78.40XA Allergy, unspecified, initial encounter (principal); X58.XXXA Exposure to other specified factors, initial encounter
CPT/HCPCS: 96372; 99283; J1100; J1200

== ENCOUNTER 2022-04-19 16:20 | Emergency (ER) | payer OTHER, MEDICAID, SELFPAY ==
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
[2022-04-19 16:26] VITALS: BP 149/91; PULSE 93; RESP 16; TEMP 36.4; O2SAT 98
[2022-04-19 16:30] VITALS: BP 143/79; PULSE 79; RESP 16; TEMP 36.4; O2SAT 98
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
[2022-04-19 17:24] LABS: Basophils # 0.1 10^3/uL (0.0-0.1); Basophils % 0.6 %; Eosinophils # 0.4 10^3/uL (0.0-0.8); Eosinophils % 4.3 %; Hematocrit 45.7 % (42.0-52.0); Hemoglobin 14.7 g/dL (11.7-16.6); Lymphocytes # 2.3 10^3/uL (0.8-4.8); Lymphocytes % 24.8 %; Mean Corpuscular HGB Conc 32.2 g/dL (30.0-36.0); Mean Corpuscular Hemoglobin 29.2 pg (28.0-34.0); Mean Corpuscular Volume 90.7 fl (80-94); Mean Platelet Volume 11.9 fL (7.4-10.4); Monocytes % 11.2 %; Neutrophils # 5.32 10^3/uL (1.8-7.7); Neutrophils % 58.5 %; Nucleated Red Blood Cells % 0 %; Platelet Count 203 10^3/cmm (130-400); Red Blood Count 5.04 10^6/uL (4.1-5.3); Red Cell Distribution Width 13.1 % (12.1-15.1); White Blood Count 9.1 10^3/uL (4.0-10.0)
[2022-04-19 18:09] VITALS: BP 143/79; PULSE 79; RESP 16; TEMP 36.4; O2SAT 98
== END 2022-04-19 18:10 | disposition home or self-care (01) ==
PROVIDERS: Emergency Provider Emergency Medicine; PCP Family Medicine
DX: S06.0X9A Concussion with loss of consciousness of unspecified duration, initial encounter (principal); S83.92XA Sprain of unspecified site of left knee, initial encounter; F17.210 Nicotine dependence, cigarettes, uncomplicated; V89.2XXA Person injured in unspecified motor-vehicle accident, traffic, initial encounter
CPT/HCPCS: 29530; 70450; 72125; 73080; 73562; 85025; 99284; E0114

== ENCOUNTER → 2025-06-25 16:27 | Outpatient (BNVA) | payer MEDICAID, SELFPAY | PROVIDERS: PCP Family Medicine; Visit Provider Emergency Medicine | DX: B34.9 Viral infection, unspecified (principal) | CPT/HCPCS: 87400; 87426 ==